=== PATIENT | female | born 1995 ===

== ENCOUNTER 2019-01-04 19:00 | Emergency (ER) | payer OTHER ==
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
[2019-01-04] MEDS ORDERED: Ibuprofen TAB* 600 MG PO ONE (20:22)
--- NOTE | 2019-01-05 08:23 | UC ---
- Progress Note Progress Note: Patient Name: TRAY NAVARRETE Medical Record#: [id number] Ordering Physician: Silva Davison MD Acct.#: [id number] : 1995 Age: 23 Sex: F Location[facility] Exam Date: 01/04/192021 ADM Status: [facility] ER Order Information: THUMB LEFT Accession Number: [id number] CPT: 35343 INDICATION: Left thumb injury. TECHNIQUE: 3 views of the left thumb were obtained. FINDINGS: The bones are in normal alignment. No fracture is seen. Joint spaces appear maintained. IMPRESSION: NO EVIDENCE FOR FRACTURE. R0 Preliminary Imaging Read R0 <Electronically signed by Tacho Webb MD in OV> 01/05/19743 Dictated By: Tacho Webb MD Dictated Date/Time: 01/05/19743 Transcribed Date/Time: 01/05/19742 Copy to: CC:Silav Davison MD; No Primary Care Phys,[facility]OPCP Imaging - [facility] Imaging - [facility] - [facility] Care [address] [place] [address] ph ([phone]) ph ([phone]) ph ([phone]) This report is only to be considered final once signed by the Provider(s) as displayed in the "<Electronically Signed by >" field (s). Absence of a signature indicates the report is in a draft status and still needs to be finalized. In the event this document was created by someone other than the signing Provider, the individual initiating the document will be listed in the "Entered by:" or "Dictated by:" del rosario. 1 of 1 Patient Name: TRAY NAVARRETE Medical Record#: [id number] Ordering Physician: Silva Davison MD Acct.#: [id number] : 1995 Age: 23 Sex: F [facility] Exam Date: 01/04/192022 ADM Status: DEP ER Order Information: ANKLE RIGHT 3+VWS Accession Number: [id number] CPT: 28487 Indication: Right ankle pain. 3 views of the right ankle demonstrates no fracture or dislocation. Ankle mortise is intact. No evidence of soft tissue swelling is noted. IMPRESSION: No fracture of the right ankle is noted. R0 Preliminary Imaging Read R0 <Electronically signed by Jayde Acharya MD in OV> 01/05/19745 Dictated By: Jayde Acharya MD Dictated Date/Time: 01/05/19745 Transcribed Date/Time: 01/05/19743 Copy to: CC:Silva Davison MD; No Primary Care Phys,NOPCP Imaging - [facility] Imaging - [facility] - [facility] [address] [place] [address] ph ([phone]) ph ([phone]) ph ([phone]) This report is only to be considered final once signed by the Provider(s) as displayed in the "<Electronically Signed by >" field (s). Absence of a signature indicates the report is in a draft status and still needs to be finalized. In the event this document was created by someone other than the signing Provider, the individual initiating the document will be listed in the "Entered by:" or "Dictated by:" del rosario. 1 of 1 Course/Dx - Diagnoses Provider Diagnoses: Abrasion, Ankle sprain Discharge - Sign-Out/Discharge Documenting (check all that apply): Post-Discharge Follow Up All imaging exams completed and their final reports reviewed: Yes - Discharge Plan Condition: Stable Disposition: HOME Patient Education Materials: Ankle Sprain (ED), Crutch Instructions (ED), Ankle Stirrup Splint (ED), Abrasion (ED) Referrals: [facility] [Provider Group] [facility] [Provider Group] No Primary Care Phys,NOPCP [Primary Care Provider] - Additional Instructions: - Anticipate increased discomfort over the next 1-2 days - this is normal after any injury. - Okay to alternate ibuprofen (Advil, Motrin) 600mg and Tylenol every 3 hours for pain. Take with food. Do NOT Take for more than 4-5 days - Okay to gently wash your wounds with warm, soapy water. Pat dry. Cover with a thin layer of antibiotic ointment (Neosporin, Polysporin) - they may ooze a little water, yellow fluid - this is normal - For your ankle: -Wear heriberto wrap and air splint for comfort and support -Apply ice (20 min at a time) every 2-3 hours for the next 2 days -use crutches until you can walk normally without a limp -Elevate your leg - this will help with swelling and pain -Contact [facility] or the sports medicine clinic to arrange a follow-up appointment early next week. Contact your doctor or return with questions or concerns - Billing Disposition and Condition Condition: STABLE Disposition: Home
== END 2019-01-04 22:30 | disposition home or self-care (01) ==
LOC: UCEAST 19:00
DX: S00.81XA Abrasion of other part of head, initial encounter (principal); S60.512A Abrasion of left hand, initial encounter; S80.212A Abrasion, left knee, initial encounter; S80.211A Abrasion, right knee, initial encounter; S93.401A Sprain of unspecified ligament of right ankle, initial encounter; S69.92XA Unspecified injury of left wrist, hand and finger(s), initial encounter; V13.4XXA Pedal cycle driver injured in collision with car, pick-up truck or van in traffic accident, initial encounter; Y93.55 Activity, bike riding; Y92.410 Unspecified street and highway as the place of occurrence of the external cause
CPT/HCPCS: 99203; A9270-GY; G0463